=== PATIENT | male | born 1995 | race Caucasian/White ===

== ENCOUNTER 2017-09-09 05:10 | Emergency (ER) | payer BC ==
[~2017-09-09] VITALS: Ht 182.9 cm; Wt 90.0 kg
[2017-09-09 05:17] VITALS: BP 157/100; PULSE 85; RESP 17; RESP 19; TEMP 98.4; O2SAT 100
[2017-09-09] MEDS ORDERED: LEXA5TAB PO (05:27)
[2017-09-09] MEDS ORDERED: MONT10TA2 PO (05:27)
[2017-09-09] MEDS ORDERED: ALLE60TA PO (05:27)
[2017-09-09 05:57] VITALS: BP 134/92; PULSE 89; RESP 18; O2SAT 99
[2017-09-09] MEDS ORDERED: SODIUM CHLOR 0.9% 1000 ML INJ 1,000 ML IV ONE (05:58)
[2017-09-09] MEDS ORDERED: SODIUM CHLORIDE 0.9% FLUSH 10 ML FLUSH IVF PRN (06:00)
--- NOTE | 2017-09-09 06:10 | PD ---
HPI Chief Complaint: Alcohol/Drug Intoxication Time Seen by Provider: 05:58 Travel History International Travel<30 days: No Contact w/Intl Traveler<30days: No Traveled to known affect area: No History of Present Illness HPI 21-year-old male presents to the emergency department by EMS transport from local [facility] due to adverse reaction to alcoholic beverage that he consumed approximately 2-1/2 hours to 3 hours prior to arrival to the emergency department. According to the patient he was drinking at a bar and switch to drink with a friend with him and shortly thereafter did not feel well developed nausea and has had multiple episodes of vomiting. Patient states there have actually been gaps of time that he does not recall well but eventually ended up in his hotel room and continued to have nausea and vomiting. Patient denies hematemesis or coffee-ground emesis. Patient has associated GI upset and discomfort with vomiting but otherwise denies abdominal pain denies chest pain or shortness of breath. Patient denies diarrhea. Friends who are with him at the time of the ingestion of the alcoholic beverage are here at the emergency room and state that there has been no loss of consciousness injury or fall. Patient denies any chronic medical conditions other than asthma which is not currently causing him any issues. PFSH Past Medical History Narrative Medical Asthma, alcohol use; nursing notes reviewed Asthma: Yes Diminished Hearing: No Immunizations Current: Yes ?: Not Social History Alcohol Use: Yes (OCC) Tobacco Use: No Substance Use: No Allergies-Medications (Allergen,Severity, Reaction): Coded Allergies: No Known Allergies (Unverified , 09/09/17) Reported Meds & Prescriptions Reported Meds & Active Scripts Active Reported Jenna Allergy (Fexofenadine HCl) 60 Mg Tab 60 Mg PO BID Singulair (Montelukast Sodium) 10 Mg Tab 10 Mg PO HS Lexapro (Escitalopram Oxalate) 5 Mg Tab 5 Mg PO DAILY Review of Systems Except as stated in HPI: all other systems reviewed are Neg General / Constitutional: No: Fever Eyes: No: Visual changes HENT: Positive: Lightheadedness, No: Headaches Cardiovascular: No: Chest Pain or Discomfort Respiratory: No: Shortness of Breath Gastrointestinal: Positive: Nausea, Vomiting, No: Diarrhea, Abdominal Pain Genitourinary: No: Dysuria, Flank Pain Physical Exam Narrative GENERAL: Well-developed well-nourished male no acute distress no respiratory distress SKIN: Warm and dry. HEAD: Normocephalic. EYES: No scleral icterus. No injection or drainage. NECK: Supple, trachea midline. No JVD or lymphadenopathy. CARDIOVASCULAR: Regular rate and rhythm without murmurs, gallops, or rubs. RESPIRATORY: Breath sounds equal bilaterally. No accessory muscle use. GASTROINTESTINAL: Abdomen soft, non-tender, nondistended. MUSCULOSKELETAL: No cyanosis, or edema. BACK: Nontender without obvious deformity. No CVA tenderness. Data Data Last Documented VS Vital Signs Date Time Temp Pulse Resp B/P (MAP) Pulse Ox O2 Delivery O2 Flow Rate FiO2 09/09/17 06:33 86 16 133/96 (108) 97 09/09/17 05:57 Room Air 09/09/17 05:17 98.4 Orders Orders Electrocardiogram (09/09/17 05:58) Complete Blood Count With Diff (09/09/17 05:58) Comprehensive Metabolic Panel (09/09/17 05:58) Prothrombin Time / Inr (Pt) (09/09/17 05:58) Act Partial Throm Time (Ptt) (09/09/17 05:58) Urinalysis - C+S If Indicated (09/09/17 05:58) Chest, Single Ap (09/09/17 05:58) Blood Glucose (09/09/17 05:58) Iv Access Insert/Monitor (09/09/17 05:58) Ecg Monitoring (09/09/17 05:58) Oximetry (09/09/17 05:58) Sodium Chloride 0.9% Flush (Ns Flush) (09/09/17 06:00) Sodium Chlor 0.9% 1000 Ml Inj (Ns 1000 M (09/09/17 05:58) Drug Screen, Random Urine (09/09/17 05:58) Alcohol (Ethanol) (09/09/17 05:58) Salicylates (Aspirin) (09/09/17 05:58) Tylenol (Acetaminophen) (09/09/17 05:58) Magnesium (Mg) (09/09/17 05:58) Labs Laboratory Tests Test 09/09/17 06:00 09/09/17 06:09 White Blood Count 8.1 TH/MM3 Red Blood Count 5.13 MIL/MM3 Hemoglobin 16.1 GM/DL Hematocrit 45.2 % Mean Corpuscular Volume 88.2 FL Mean Corpuscular Hemoglobin 31.4 PG Mean Corpuscular Hemoglobin Concent 35.6 % Red Cell Distribution Width 12.3 % Platelet Count 315 TH/MM3 Mean Platelet Volume 8.2 FL Neutrophils (%) (Auto) 80.9 % Lymphocytes (%) (Auto) 13.5 % Monocytes (%) (Auto) 5.0 % Eosinophils (%) (Auto) 0.2 % Basophils (%) (Auto) 0.4 % Neutrophils # (Auto) 6.5 TH/MM3 Lymphocytes # (Auto) 1.1 TH/MM3 Monocytes # (Auto) 0.4 TH/MM3 Eosinophils # (Auto) 0.0 TH/MM3 Basophils # (Auto) 0.0 TH/MM3 CBC Comment DIFF FINAL Differential Comment Prothrombin Time 11.0 SEC Prothromb Time International Ratio 1.1 RATIO Activated Partial Thromboplast Time 27.7 SEC Urine Color LIGHT-YELLOW Urine Turbidity CLEAR Urine pH 7.0 Urine Specific [place] 1.005 Urine Protein NEG mg/dL Urine Glucose (UA) NEG mg/dL Urine Ketones NEG mg/dL Urine Occult Blood NEG Urine Nitrite NEG Urine Bilirubin NEG Urine Urobilinogen LESS THAN 2.0 MG/DL Urine Leukocyte Esterase NEG Urine WBC LESS THAN 1 /hpf Microscopic Urinalysis Comment CULT NOT INDICATED Urine Opiates Screen NEG Urine Barbiturates Screen NEG Urine Amphetamines Screen NEG Urine Benzodiazepines Screen NEG Urine Cocaine Screen NEG Urine Cannabinoids Screen NEG [facility] Medical Decision Making Medical Screen Exam Complete: Yes Emergency Medical Condition: Yes Medical Record Reviewed: Yes Interpretation(s) EKG normal sinus rhythm rate [address] elevation injury pattern or ectopy noted Differential Diagnosis Polysubstance ingestion, alcohol intoxication, alcohol-induced gastritis, dehydration; unlikely Boerhaave's or Dara-Mathew tear Narrative Course IV access obtained specimens collected and sent for resulting patient administered IV fluids and Zofran by EMS prior to arrival to the emergency department additional IV fluids administered. At 715 care signed over to Patricia Campo MD Sep 09, 2017 06:10
--- NOTE | 2017-09-09 06:27 | RADRPT ---
EXAM DATE/TIME: 09/09/2017 06:02 [place] COMPARISON: No previous studies available for comparison. INDICATIONS : Syncope MEDICAL HISTORY : Asthma SURGICAL HISTORY : None. ENCOUNTER: Initial ACUITY: 1 day PAIN SCORE: 0/10 LOCATION: Bilateral chest FINDINGS: A single view of the chest demonstrates the lungs to be symmetrically aerated without evidence of mas s, infiltrate or effusion. The cardiomediastinal contours are unremarkable. Osseous structures are intact. CONCLUSION: No evidence of acute cardiopulmonary disease. Puma Blackmon MD on September 09, 2017 at 6:26 Board Certified Radiologist. This report was verified electronically.
[2017-09-09 06:33] VITALS: BP 133/96; PULSE 86; RESP 16; O2SAT 97
[2017-09-09 06:51] LABS: AUTOMATED NEUTROPHIL # 6.5 TH/MM3 (1.8-7.7); BASOPHIL % 0.4 % (0.0-2.0); EOSINOPHIL % 0.2 % (0.0-4.0); HEMATOCRIT 45.2 % (39.0-51.0); HEMOGLOBIN 16.1 GM/DL (13.0-17.0); LYMPH % 13.5 % (9.0-44.0); LYMPHOCYTE # 1.1 TH/MM3 (1.0-4.8); MEAN CELL VOLUME 88.2 FL (80.0-100.0); MEAN CORPUSCULAR HEMOGLOBIN 31.4 PG (27.0-34.0); MEAN CORPUSCULAR HGB CONC 35.6 % (32.0-36.0); MEAN PLATELET VOLUME 8.2 FL (7.0-11.0); MONOCYTE # 0.4 TH/MM3 (0-0.9); NEUT % 80.9 % (16.0-70.0); PLATELET COUNT 315 TH/MM3 (150-450); RED BLOOD COUNT 5.13 MIL/MM3 (4.50-5.90); RED CELL DISTRIBUTION WIDTH 12.3 % (11.6-17.2); WHITE BLOOD COUNT 8.1 TH/MM3 (4.0-11.0)
[2017-09-09 07:00] LABS: BILIRUBIN, URINE NEG (NEG); BLOOD, URINE NEG (NEG); GLUCOSE,URINE NEG (NEG); KETONE, URINE NEG (NEG); NITRITE,URINE NEG (NEG); URINE COLOR LIGHT-YELLOW (YELLW/STRAW); URINE LEUKOCYTE ESTERASE NEG (NEG)
[2017-09-09 07:06] LABS: INTERNATIONAL NORMALIZED RATIO 1.1 RATIO
[2017-09-09 07:24] LABS: ALBUMIN 4.7 GM/DL (3.4-5.0); ALKALINE PHOSPHATASE 92 U/L (45-117); ALT (GPT) 24 U/L (12-78); AST (GOT) 22 U/L (15-37); BICARBONATE 25.6 MEQ/L (21.0-32.0); BLOOD UREA NITROGEN 7 MG/DL (7-18); CALCIUM 8.8 MG/DL (8.5-10.1); CHLORIDE 107 MEQ/L (98-107); CREATININE 0.79 MG/DL (0.60-1.30); GLOMERULAR FILTRATION RATE 124 ML/MIN (>89); GLUCOSE,RANDOM 97 MG/DL (74-106); MAGNESIUM 2.3 MG/DL (1.5-2.5); SODIUM (NA) 144 MEQ/L (136-145); TOTAL BILIRUBIN ADULT 1.2 MG/DL (0.2-1.0); TOTAL PROTEIN 8.6 GM/DL (6.4-8.2)
[2017-09-09 07:30] LABS: ACETAMINOPHEN LESS THAN 2.0 MCG/ML (10.0-30.0)
[2017-09-09 07:41] VITALS: PULSE 86; RESP 18; O2SAT 98
--- NOTE | 2017-09-09 07:58 | PD ---
Physical Exam Narrative GENERAL: 21-year-old male in no apparent distress SKIN: Focused skin assessment warm/dry. HEAD: Atraumatic. Normocephalic. EYES: Pupils equal and round. No scleral icterus. No injection or drainage. ENT: No nasal bleeding or discharge. Mucous membranes pink and moist. NECK: Trachea midline. CARDIOVASCULAR: Regular rate and rhythm. RESPIRATORY: No accessory muscle use. no increased effort MUSCULOSKELETAL: No obvious deformities. No clubbing. No cyanosis. No edema. NEUROLOGICAL: Awake and alert. Motor grossly within normal limits. Normal speech. Data Data Last Documented VS Vital Signs Date Time Temp Pulse Resp B/P (MAP) Pulse Ox O2 Delivery O2 Flow Rate FiO2 09/09/17 07:41 86 18 98 Room Air 09/09/17 05:17 98.4 Orders Orders Electrocardiogram (09/09/17 05:58) Complete Blood Count With Diff (09/09/17 05:58) Comprehensive Metabolic Panel (09/09/17 05:58) Prothrombin Time / Inr (Pt) (09/09/17 05:58) Act Partial Throm Time (Ptt) (09/09/17 05:58) Urinalysis - C+S If Indicated (09/09/17 05:58) Chest, Single Ap (09/09/17 05:58) Blood Glucose (09/09/17 05:58) Iv Access Insert/Monitor (09/09/17 05:58) Ecg Monitoring (09/09/17 05:58) Oximetry (09/09/17 05:58) Sodium Chloride 0.9% Flush (Ns Flush) (09/09/17 06:00) Sodium Chlor 0.9% 1000 Ml Inj (Ns 1000 M (09/09/17 05:58) Drug Screen, Random Urine (09/09/17 05:58) Alcohol (Ethanol) (09/09/17 05:58) Salicylates (Aspirin) (09/09/17 05:58) Tylenol (Acetaminophen) (09/09/17 05:58) Magnesium (Mg) (09/09/17 05:58) Ed Discharge Order (09/09/17 08:00) Labs Laboratory Tests Test 09/09/17 06:00 09/09/17 06:09 White Blood Count 8.1 TH/MM3 Red Blood Count 5.13 MIL/MM3 Hemoglobin 16.1 GM/DL Hematocrit 45.2 % Mean Corpuscular Volume 88.2 FL Mean Corpuscular Hemoglobin 31.4 PG Mean Corpuscular Hemoglobin Concent 35.6 % Red Cell Distribution Width 12.3 % Platelet Count 315 TH/MM3 Mean Platelet Volume 8.2 FL Neutrophils (%) (Auto) 80.9 % Lymphocytes (%) (Auto) 13.5 % Monocytes (%) (Auto) 5.0 % Eosinophils (%) (Auto) 0.2 % Basophils (%) (Auto) 0.4 % Neutrophils # (Auto) 6.5 TH/MM3 Lymphocytes # (Auto) 1.1 TH/MM3 Monocytes # (Auto) 0.4 TH/MM3 Eosinophils # (Auto) 0.0 TH/MM3 Basophils # (Auto) 0.0 TH/MM3 CBC Comment DIFF FINAL Differential Comment Prothrombin Time 11.0 SEC Prothromb Time International Ratio 1.1 RATIO Activated Partial Thromboplast Time 27.7 SEC Urine Color LIGHT-YELLOW Urine Turbidity CLEAR Urine pH 7.0 Urine Specific [place] 1.005 Urine Protein NEG mg/dL Urine Glucose (UA) NEG mg/dL Urine Ketones NEG mg/dL Urine Occult Blood NEG Urine Nitrite NEG Urine Bilirubin NEG Urine Urobilinogen LESS THAN 2.0 MG/DL Urine Leukocyte Esterase NEG Urine WBC LESS THAN 1 /hpf Microscopic Urinalysis Comment CULT NOT INDICATED Urine Opiates Screen NEG Urine Barbiturates Screen NEG Urine Amphetamines Screen NEG Urine Benzodiazepines Screen NEG Urine Cocaine Screen NEG Urine Cannabinoids Screen NEG Blood Urea Nitrogen 7 MG/DL Creatinine 0.79 MG/DL Random Glucose 97 MG/DL Total Protein 8.6 GM/DL Albumin 4.7 GM/DL Calcium Level 8.8 MG/DL Magnesium Level 2.3 MG/DL Alkaline Phosphatase 92 U/L Aspartate Amino Transf (AST/SGOT) 22 U/L Alanine Aminotransferase (ALT/SGPT) 24 U/L Total Bilirubin 1.2 MG/DL Sodium Level 144 MEQ/L Potassium Level 3.8 MEQ/L Chloride Level 107 MEQ/L Carbon Dioxide Level 25.6 MEQ/L Anion Gap 11 MEQ/L Estimat Glomerular Filtration Rate 124 ML/MIN Salicylates Level LESS THAN 1.7 MG/DL Acetaminophen Level LESS THAN 2.0 MCG/ML Ethyl Alcohol Level 135 MG/DL MDM Supervised Visit with OPAL: No Interpretation(s) CBC & BMP Diagram 09/09/17 06:00 09/09/17 06:09 Total Protein 8.6 H, Albumin 4.7, Calcium Level 8.8, Magnesium Level 2.3, Alkaline Phosphatase 92, Aspartate Amino Transf (AST/SGOT) 22, Alanine Aminotransferase (ALT/SGPT) 24, Total Bilirubin 1.2 H Narrative Course signed over to me to discharge if labs without emergent findings, has ride here No further emesis, patient denies any new complaints and states that they are feeling better. Sober friend at bedside, patient happy with care, all questions answered. Patient knows that follow up is incumbent on them and to return to the emergency room immediately if new or worsening symptoms develop. Patient given strict return precautions, vitals reviewed and are normal, agrees to further workup as an outpatient. Diagnosis Primary Impression: Alcohol intoxication Qualified Codes: F10.920 - Alcohol use, unspecified with intoxication, uncomplicated Additional Impression: Vomiting Qualified Codes: R11.2 - Nausea with vomiting, unspecified Patient Instructions: General Instructions Additional Instruction: Limit alcohol use, return with any emergent need Med/Other Pt SpecificInfo: No Change to Meds Disposition: 01 DISCHARGE HOME Condition: Stable Ruth Nieves MD Sep 09, 2017 07:58
--- NOTE | 2017-09-10 23:07 | EKG ---
Date Performed: 09/09/2017 Time Performed: 06:30:30 PTAGE: 21 years EKG: Sinus rhythm NORMAL ECG NO PREVIOUS TRACING DOCTOR: Paul Palmer Interpretating Date/Time 09/10/2017 23:06:39
== END 2017-09-09 08:29 | disposition home or self-care (01) ==
LOC: NEPC 05:10
DX: F10.920 Alcohol use, unspecified with intoxication, uncomplicated (principal); R11.2 Nausea with vomiting, unspecified; Y90.6 Blood alcohol level of 120-199 mg/100 ml; Z79.899 Other long term (current) drug therapy
CPT/HCPCS: 71045; 80053; 80307; 81001; 83735; 85025; 85610; 85730; 93005; 96360; 99285; J7030